=== PATIENT | male | born 1990 | race African-American/Black ===

== ENCOUNTER 2018-07-22 14:59 | Emergency (ER) | payer SELFPAY ==
[~2018-07-22] VITALS: Ht 195.6 cm; Wt 122.5 kg
[2018-07-22 16:10] VITALS: BP 134/70
--- NOTE | 2018-07-22 17:36 | PHYS DOC ---
Past Medical History Past Medical History: No Pertinent History Past Surgical History: Other Additional Past Surgical Histo: knee surgery Alcohol Use: None Drug Use: None Adult General Chief Complaint Chief Complaint: SEXUALLY TRANSMITTED DISEASE HPI HPI Patient is a 27 year old AA male who presents to the emergency Department today with complaints of dysuria this morning. Patient thinks that he has a sexually transmitted disease. He denies any abdominal pain, hematuria, abnormal penile discharge, or known STD exposure. Patient currently denies any pain. Review of Systems Review of Systems Constitutional: Denies fever or chills [] : See history of present illness Integument: Denies rash or skin lesions [] Allergies Allergies Allergies Coded Allergies Type Severity Reaction Last Updated Verified No Known Drug Allergies 03/02/14 No Physical Exam Physical Exam Constitutional: Well developed, well nourished, no acute distress, non-toxic appearance. [] HENT: Normocephalic, atraumatic, bilateral external ears normal, nose normal. [] Eyes: conjunctiva normal, no discharge. [] Neck: Normal range of motion, no stridor. [] Lungs & Thorax: Respirations even and unlabored no retractions Skin: Warm, dry, no erythema, no rash. [] Extremities: No cyanosis, ROM intact, Neurologic: Alert and oriented X 3, no focal deficits noted. [] Psychologic: Affect normal, judgement normal, mood normal. [] Current Patient Data Vital Signs Vital Signs Date Time Temp Pulse Resp B/P (MAP) Pulse Ox O2 Delivery O2 Flow Rate FiO2 07/22/18 16:10 98.4 75 16 134/70 (91) 98 Room Air 98.4 EKG EKG [] Radiology/Procedures Radiology/Procedures []dx: Suspected sexually transmitted disease Patient was treated prophylactically with 250 mg of IM Rocephin, and 1 g of PO Zithromax. Patient was instructed to avoid having intercourse until the results of gonorrhea and chlamydia testing were available, patient was notified that these results would not be available for 48 hours. If one or both of these tests is positive, patient needs to refrain from intercourse for approximately 2 weeks following the treatment of any current partners. Patient verbalized an understanding of home care, medications, follow-up, and return to ED instructions and was in agreement with the plan of care. Course & Med Decision Making Course & Med Decision Making Pertinent Labs and Imaging studies reviewed. (See chart for details) [] Dragon Disclaimer Dragon Disclaimer This electronic medical record was generated, in whole or in part, using a voice recognition dictation system. Departure Departure Impression: Primary Impression: Contact with and (suspected) exposure to infections with a predominantly sexual mode of transmission Additional Impression: Dysuria Disposition: HOME, SELF-CARE Condition: STABLE Referrals: NO PCP (PCP) Patient Instructions: Sexually Transmitted Disease, [id number] Additional Instructions: Emergency treatment today for suspected sexually transmitted disease. Your STD testing results will not be available for 48 hours. You need to avoid having intercourse until you know the results of this testing. If one of these test is positive you need to inform any current sex partners and avoid having intercourse until they have also been treated. Follow-up with your primary care doctor if symptoms persist, return to the ER symptoms worsen. Problem Qualifiers DARRICK ROME APRN Jul 22, 2018 17:36
[2018-07-22] MEDS ORDERED: AZITHROMYCIN 250 MG TABLET. PO ONE (17:45)
[2018-07-22] MEDS ORDERED: cefTRIAXone IM 250 MG VIAL IM ONE (17:45)
[2018-07-22 17:53] LABS: BILIRUBIN,URINE NEGATIVE (NEG); CLARITY,URINE CLEAR; COLOR,URINE YELLOW; NITRITE,URINE NEGATIVE (NEG); PH,URINE 6.5; PROTEIN,URINE NEGATIVE (NEG-TRACE); UROBILINOGEN,URINE 0.2 mg/dL (0.2 mg/dL)
[2018-07-22 18:06] LABS: BACTERIA,URINE FEW /HPF (0-FEW); RBC,URINE RARE /HPF (0-2); WBC,URINE TNTC /HPF (0-4)
== END 2018-07-22 17:59 | disposition home or self-care (01) ==
LOC: ER 14:59
DX: R30.0 Dysuria (principal); Z20.2 Contact with and (suspected) exposure to infections with a predominantly sexual mode of transmission
CPT/HCPCS: 81001; 96372; 99283; J0696; Q0144; 87086; 87491; 87591